=== PATIENT | female | born 1990 | race Caucasian/White ===

== ENCOUNTER 2020-01-10 13:05 | Observation (INO) | payer BC, OTHER ==
[~2020-01-10] VITALS: Ht 162.6 cm; Wt 59.0 kg
[2020-01-10] MEDS ORDERED: LORazepam Inj 2mg/ml 1ml IM ONE (13:45)
[2020-01-10 14:26] VITALS: BP 133/87
--- NOTE | 2020-01-10 14:28 | NUR ---
ED Nurse Note:pt. came from home with c/o anxiety and possible overdose on psych meds, given ativan
--- NOTE | 2020-01-10 14:30 | NUR ---
ED Nurse Note:pt. reported exidently taking double dose of wellbutrin today
--- NOTE | 2020-01-10 15:10 | Emergency Room Report ---
History of Present Illness General Chief Complaint: General Complaint Present Illness HPI 29-year-old female presents to the emergency department complaining of increased anxiety, tearfulness and hyperventilating status post accidentally taking a double dosage of her Wellbutrin today. Patient reports that she takes 450 mg daily for depression and ADHD. Patient reports she takes a 300 as well as 150 mg Wellbutrin XL. Patient reports that she believes she may have taken her dose when she woke up early this morning. Patient went back to bed and woke up se veral hours later and went to work. Patient reports she was not sure if she took her medication or not so she went ahead and took another dose. Patient reports while at work at approximately 10 AM she began having severe anxiety and hyperventilating and crying. Patient believes she may have accidentally overdosed on her Wellbutrin. She denies taking any other medications. She denies . She denies cardiac, liver or renal disease. Patient denies previous psychiatric hospitalizations or PSAs. She denies hallucinations. She denies history of seizures. She reports that she feels as though her heart is racing. She denies chest pain. Allergies: Coded Allergies: No Known Allergies (Unverified , 01/10/20) COVID-19 Screening Contact w/high risk pt: No Experienced COVID-19 symptoms?: No COVID-19 Testing performed PILOT INSTRUCTOR: No Patient History Past Medical History: see triage record Past Surgical History: none Pertinent Family History: none Now: No Reviewed Nursing Documentation: PMH: Agreed; PSxH: Agreed Review of Systems All Other Systems: negative except mentioned in HPI Physical Exam Vital Signs Date Time Temp Pulse Resp B/P (MAP) Pulse Ox O2 Delivery O2 Flow Rate FiO2 01/10/20 13:29 97.9 87 20 133/87 (102) 97 Room Air Sp02 EP Interpretation: reviewed, normal General Appearance: no apparent distress, alert, GCS 15, non-toxic Head: normocephalic, atraumatic Eyes: bilateral eye normal inspection, bilateral eye PERRL ENT: hearing grossly normal, normal voice Neck: full range of motion Respiratory: chest non-tender, lungs clear, normal breath sounds, no accessory muscle use, no wheezing, speaking full sentences Cardiovascular #1: regular rate, rhythm, no edema Gastrointestinal: normal bowel sounds, non tender, soft Musculoskeletal: normal range of motion, gait/station normal, non-tender Neurologic: alert, motor strength/tone normal, oriented x3, sensory intact, responsive, speech normal Psychiatric: judgement/insight normal, anxious - Pt. very anxious. Skin: no rash, normal color Medical Decision Making PA Attestation Dr. Santos is my supervising Physician whom patient management has been discussed with. Diagnostic Impression: Primary Impression: Accidental overdose Qualified Codes: T50.901A - Poisoning by unspecified drugs, medicaments and biological substances, accidental (unintentional), initial encounter ER Course 29-year-old female presents to the emergency department complaining of increased anxiety, tearfulness and hyperventilating status post accidentally taking a double dosage of her Wellbutrin today. Patient reports that she takes 450 mg daily for depression and ADHD. Patient reports she takes a 300 as well as 150 mg Wellbutrin XL. Patient reports that she believes she may have taken her dose when she woke up early this morning. Patient went back to bed and woke up several hours later and went to work. Patient reports she was not sure if she took her medication or not so she went ahead and took another dose. Patient rep orts while at work at approximately 10 AM she began having severe anxiety and hyperventilating and crying. Patient believes she may have accidentally overdosed on her Wellbutrin. She denies taking any other medications. She denies . She denies cardiac, liver or renal disease. Patient denies previous psychiatric hospitalizations or PSAs. She denies hallucinations. She denies history of seizures. She reports that she feels as though her heart is racing. She denies chest pain. Pt is has a very anxious and restless affect., Patient began crying and worrying after being triaged as she was told that her vital signs were normal. This really worried the patient as she is feeling abnormal and is worried that we do not believe her. Ddx considered but are not limited to OD, SI/HI, psychosis, UTI, intoxication Vital signs: are WNL, pt. is afebrile. H&PE are most consistent with accidental overdose on Wellbutrin that was unintentional. Patient denies SI ORDERS: --EKG [address] changes QT/QTc interval. -CBC, CMP: WNL -UA: negative for infection see results attached. -UDS: Negative -Urine Hcg: Negative -Salicylates and Acetaminophen - no acute intoxication. ED INTERVENTIONS: - 1mg Ativan IM --- Patient has moderate improvement of her symptoms. Upon reevaluation patient explained that she took a total of 900 mg when originally she thought it was 700. Poison control was contacted and recommended 24-hour observation. DISPOSITION: at this time pt. will be admitted to Dr. Goss for 24-hour observation for accidental overdose of Wellbutrin. Dr. Goss agreed to admit the pt. and to continue pt. care management. Labs Test 01/10/20 16:46 01/10/20 18:15 White Blood Count 6.5 K/UL (4.8-10.8) Red Blood Count 4.54 M/UL (4.20-5.40) Hemoglobin 14.7 G/DL (12.0-16.0) Hematocrit 42.7 % (37.0-47.0) Mean Corpuscular Volume 94 FL (80-99) Mean Corpuscular Hemoglobin 32.4 PG (27.0-31.0) Mean Corpuscular Hemoglobin Concent 34.5 G/DL (32.0-36.0) Red Cell Distribution Width 11.6 % (11.6-14.8) Platelet Count 195 K/UL (150-450) Mean Platelet Volume 7.2 FL (6.5-10.1) Neutrophils (%) (Auto) 69.0 % (45.0-75.0) Lymphocytes (%) (Auto) 24.1 % (20.0-45.0) Monocytes (%) (Auto) 5.8 % (1.0-10.0) Eosinophils (%) (Auto) 0.3 % (0.0-3.0) Basophils (%) (Auto) 0.8 % (0.0-2.0) Sodium Level 139 MMOL/L (136-145) Potassium Level 3.4 MMOL/L (3.5-5.1) Chloride Level 103 MMOL/L (98-107) Carbon Dioxide Level 26 MMOL/L (21-32) Anion Gap 11 mmol/L (5-15) Blood Urea Nitrogen 9 mg/dL (7-18) Creatinine 0.9 MG/DL (0.55-1.30) Estimat Glomerular Filtration Rate > 60 mL/min (>60) Glucose Level 78 MG/DL (74-106) Calcium Level 9.3 MG/DL (8.5-10.1) Total Bilirubin 0.7 MG/DL (0.2-1.0) Aspartate Amino Transf (AST/SGOT) 18 U/L (15-37) Alanine Aminotransferase (ALT/SGPT) 39 U/L (12-78) Alkaline Phosphatase 57 U/L (46-116) Total Protein 8.0 G/DL (6.4-8.2) Albumin 4.6 G/DL (3.4-5.0) Globulin 3.4 g/dL Albumin/Globulin Ratio 1.4 (1.0-2.7) Salicylates Level 1.1 ug/mL (2.8-20) Acetaminophen Level < 2 MCG/ML (10-30) Serum Alcohol < 3 mg/dL Urine HCG, Qualitative Negative (NEGATIVE) Urine Opiates Screen Negative (NEGATIVE) Urine Barbiturates Screen Negative (NEGATIVE) Phencyclidine (PCP) Screen Negative (NEGATIVE) Urine Amphetamines Screen Negative (NEGATIVE) Urine Benzodiazepines Screen Negative (NEGATIVE) Urine Cocaine Screen Negative (NEGATIVE) Urine Marijuana (THC) Screen Negative (NEGATIVE) EKG Diagnostic Results Troponin ordered: No EKG Time: 13:50 Rate: normal - 88 bpm Rhythm: NSR ST Segments: no acute changes Other Impression No evidence of prolonged QT ASA given to the pt in ED: No PA Scribe Text This Interpretation was scribed by MASSIMO Roach. Last Vital Signs Date Time Temp Pulse Resp B/P (MAP) Pulse Ox O2 Delivery O2 Flow Rate FiO2 01/10/20 14:48 87 20 133/87 97 01/10/20 14:26 Room Air 01/10/20 14:26 97.9 Status: improved Disposition: ADMITTED INPATIENT Condition: Malaiak Bowers Jan 10, 2020 15:10
--- NOTE | 2020-01-10 16:21 | NUR ---
HAND-OFF: Report given to Kia. pt. was moved to bed 5 and placed on school lunch monitor
[2020-01-10 16:30] VITALS: BP 119/83
[2020-01-10 17:16] LABS: BASOPHILS % (AUTO) 0.8 % (0.0-2.0); EOSINOPHILS % (AUTO) 0.3 % (0.0-3.0); HEMATOCRIT 42.7 % (37.0-47.0); HEMOGLOBIN 14.7 G/DL (12.0-16.0); LYMPHOCYTES % (AUTO) 24.1 % (20.0-45.0); MEAN CORPUSCULAR VOLUME 94 FL (80-99); MONOCYTES % (AUTO) 5.8 % (1.0-10.0); PLATELET COUNT 195 K/UL (150-450); RED BLOOD COUNT 4.54 M/UL (4.20-5.40); RED CELL DISTRIBUTION WIDTH 11.6 % (11.6-14.8); WHITE BLOOD COUNT 6.5 K/UL (4.8-10.8)
[2020-01-10 17:28] LABS: ANION GAP 11 mmol/L (5-15); BLOOD UREA NITROGEN 9 mg/dL (7-18); CALCIUM 9.3 MG/DL (8.5-10.1); CARBON DIOXIDE 26 MMOL/L (21-32); CHLORIDE 103 MMOL/L (98-107); CREATININE 0.9 MG/DL (0.55-1.30); POTASSIUM 3.4 MMOL/L (3.5-5.1); SODIUM 139 MMOL/L (136-145)
[2020-01-10 17:34] LABS: ALANINE AMINOTRANSFERASE 39 U/L (12-78); ALBUMIN 4.6 G/DL (3.4-5.0); ALBUMIN/GLOBULIN RATIO 1.4 (1.0-2.7); ALKALINE PHOSPHATASE 57 U/L (46-116); ASPARTATE AMINO TRANSFERASE 18 U/L (15-37); BILIRUBIN,TOTAL 0.7 MG/DL (0.2-1.0)
[2020-01-10 18:30] VITALS: BP 121/74
[2020-01-10] MEDS ORDERED: Miralax 17gm pkt ORAL PRN (19:00)
[2020-01-10] MEDS ORDERED: Zolpidem 5mg tab ORAL PRN (19:00)
--- NOTE | 2020-01-10 19:11 | NUR ---
HAND-OFF: Report given to Zoraida SPEAR.
[2020-01-10 20:12] VITALS: BP 110/61
[2020-01-10] MEDS ORDERED: BUPROPION XL300 MG ORAL (20:34)
--- NOTE | 2020-01-10 20:40 | NUR ---
TRANSFER TO FLOOR: Patient transferred to as ordered, per Dr Goss. Report given to RAINER Domínguez. Belongings and medications given to . Family and or S/O informed of transfer.
[2020-01-10] MEDS: D5 1/2NS 1,000 ML IV SCH (22:03)
[2020-01-11] VITALS: BP 124/63
--- NOTE | 2020-01-11 02:45 | NUR ---
NURSE NOTES: Patient received from Zoraida SPEAR. Brought in by herber from ED was able to ambulate to the bed. Vital signs stable upon arrival, panel monitor and gown placed on patient. No c/o pain and no s/s of distress. Oriented to room and call light. Skin intact on admission. Call light amd bedside table within reach. Will continue plan of care.
[2020-01-11 04:00] VITALS: BP 109/52
--- NOTE | 2020-01-11 07:03 | NUR ---
NURSES NOTES: Report received from RAINER Domínguez. Pt is A/O x 4 and verbally responsive. No SOB or acute distress. Pt is under observation for accidental drug overdose. Pt is ambulatory and continent of both bowel and bladder. VS stable and no ASE noted. Will continue plan of care.
[2020-01-11 07:18] LABS: BASOPHILS % (AUTO) 0.9 % (0.0-2.0); EOSINOPHILS % (AUTO) 1.5 % (0.0-3.0); HEMATOCRIT 39.4 % (37.0-47.0); HEMOGLOBIN 13.4 G/DL (12.0-16.0); LYMPHOCYTES % (AUTO) 35.5 % (20.0-45.0); MEAN CORPUSCULAR VOLUME 97 FL (80-99); MONOCYTES % (AUTO) 9.2 % (1.0-10.0); NEUTROPHILS % (AUTO) 52.9 % (45.0-75.0); PLATELET COUNT 164 K/UL (150-450); RED BLOOD COUNT 4.07 M/UL (4.20-5.40); RED CELL DISTRIBUTION WIDTH 11.9 % (11.6-14.8); WHITE BLOOD COUNT 5.2 K/UL (4.8-10.8)
--- NOTE | 2020-01-11 07:29 | NUR ---
NURSE HAND-OFF REPORT: Important Events on Shift:[Admission] Patient Status: [Stable] Diet: [Regular] Pending Orders: [] Pending Results/Labs:[] Pending MD notification:[] Latest Vital Signs: Temperature 98.2 , Pulse 72 , B/P 109 /52 , Respiratory Rate 18 , O2 SAT 99 , Room Air, O2 Flow Rate . Vital Sign Comment: [] EKG Rhythm: Sinus Rhythm Rhythm change?: N MD Notified?: - MD Response: Latest Marquez Fall Score: 20 Fall Risk: Low Risk Safety Measures: Call light Within Reach, Bed Alarm Zone 1, Side Rails Side Rails x2, Bed position Low and Locked. Fall Precautions: Yellow Socks Yellow Gown Door Sign Patient Fall Education Report given to [Irish SPEAR].
[2020-01-11 07:44] LABS: ALANINE AMINOTRANSFERASE 23 U/L (12-78); ALBUMIN 3.6 G/DL (3.4-5.0); ALBUMIN/GLOBULIN RATIO 1.2 (1.0-2.7); ALKALINE PHOSPHATASE 46 U/L (46-116); ANION GAP 4 mmol/L (5-15); ASPARTATE AMINO TRANSFERASE 17 U/L (15-37); BILIRUBIN,TOTAL 0.6 MG/DL (0.2-1.0); BLOOD UREA NITROGEN 10 mg/dL (7-18); CALCIUM 8.7 MG/DL (8.5-10.1); CARBON DIOXIDE 30 MMOL/L (21-32); CHLORIDE 105 MMOL/L (98-107); CHOLESTEROL 186 MG/DL (< 200); CREATININE 0.9 MG/DL (0.55-1.30); HDL CHOLESTEROL 76 MG/DL (40-60); POTASSIUM 4.2 MMOL/L (3.5-5.1); SODIUM 139 MMOL/L (136-145); TRIGLYCERIDES 34 MG/DL (30-150)
[2020-01-11 07:52] LABS: PHOSPHORUS 3.9 MG/DL (2.5-4.9)
[2020-01-11 08:00] VITALS: BP 100/61
[2020-01-11] MEDS: D5 1/2NS 1,000 ML IV SCH (10:53)
[2020-01-11 12:00] VITALS: BP 110/64
--- NOTE | 2020-01-11 12:05 | Consultation ---
History of Present Illness General Date patient seen: Jan 11, 2020 Chief Complaint: General Complaint Present Illness HPI 29-year-old female with hx of depression and anxiety presented to the emergency department complaining of increased anxiety, tearfulness and hyperventilating status post accidentally taking a double dosage of her Wellbutrin today. Patient believes she may have accidentally overdosed on her Wellbutrin. ER physician contacted the poison control who recommended 24 hours of observing. Pt is asymptomatic now and anxious to be discharged. Allergies: Coded Allergies: No Known Allergies (Unverified , 01/10/20) Medication History Scheduled Bupropion Hcl* (Wellbutrin*), 450 MG ORAL DAILY, (Reported) Patient History Healthcare decision maker Resuscitation status Advanced Directive on File Past Medical/Surgical History Past Medical/Surgical History: (1) Depression (2) Anxiety Review of Systems All Other Systems: negative except mentioned in HPI Physical Exam General Appearance: WD/WN, no apparent distress Lines, tubes and drains: peripheral HEENT: normocephalic, atraumatic Neck: non-tender, supple Respiratory/Chest: chest wall non-tender, normal breath sounds Cardiovascular/Chest: normal peripheral pulses, normal rate Abdomen: normal bowel sounds, non tender Last 24 Hour Vital Signs Date Time Temp Pulse Resp B/P (MAP) Pulse Ox O2 Delivery O2 Flow Rate FiO2 01/11/20 08:09 Room Air 01/11/20 08:00 100.0 70 18 100/61 (74) 99 01/11/20 08:00 80 01/11/20 04:00 74 01/11/20 04:00 98.2 72 18 109/52 (71) 99 01/11/20 00:00 98.0 74 18 124/63 (83) 95 01/11/20 00:00 68 01/10/20 21:00 85 01/10/20 20:40 98.0 82 20 121/68 99 Room Air 01/10/20 20:12 97.5 85 19 110/61 100 Room Air 01/10/20 18:30 98.3 69 15 121/74 100 Room Air 01/10/20 16:30 98.3 83 16 119/83 99 Room Air 01/10/20 14:48 87 20 133/87 97 01/10/20 14:26 87 20 Room Air 01/10/20 14:26 97.9 87 20 133/87 97 Room Air 01/10/20 14:07 87 20 133/87 97 01/10/20 13:29 97.9 87 20 133/87 (102) 97 Room Air Laboratory Tests Test 01/10/20 16:46 01/10/20 18:15 01/11/20 05:25 White Blood Count 6.5 K/UL (4.8-10.8) 5.2 K/UL (4.8-10.8) Red Blood Count 4.54 M/UL (4.20-5.40) 4.07 M/UL (4.20-5.40) L Hemoglobin 14.7 G/DL (12.0-16.0) 13.4 G/DL (12.0-16.0) Hematocrit 42.7 % (37.0-47.0) 39.4 % (37.0-47.0) Mean Corpuscular Volume 94 FL (80-99) 97 FL (80-99) Mean Corpuscular Hemoglobin 32.4 PG (27.0-31.0) H 32.8 PG (27.0-31.0) H Mean Corpuscular Hemoglobin Concent 34.5 G/DL (32.0-36.0) 33.9 G/DL (32.0-36.0) Red Cell Distribution Width 11.6 % (11.6-14.8) 11.9 % (11.6-14.8) Platelet Count 195 K/UL (150-450) 164 K/UL (150-450) Mean Platelet Volume 7.2 FL (6.5-10.1) 7.3 FL (6.5-10.1) Neutrophils (%) (Auto) 69.0 % (45.0-75.0) 52.9 % (45.0-75.0) Lymphocytes (%) (Auto) 24.1 % (20.0-45.0) 35.5 % (20.0-45.0) Monocytes (%) (Auto) 5.8 % (1.0-10.0) 9.2 % (1.0-10.0) Eosinophils (%) (Auto) 0.3 % (0.0-3.0) 1.5 % (0.0-3.0) Basophils (%) (Auto) 0.8 % (0.0-2.0) 0.9 % (0.0-2.0) Sodium Level 139 MMOL/L (136-145) 139 MMOL/L (136-145) Potassium Level 3.4 MMOL/L (3.5-5.1) L 4.2 MMOL/L (3.5-5.1) Chloride Level 103 MMOL/L (98-107) 105 MMOL/L (98-107) Carbon Dioxide Level 26 MMOL/L (21-32) 30 MMOL/L (21-32) Anion Gap 11 mmol/L (5-15) 4 mmol/L (5-15) L Blood Urea Nitrogen 9 mg/dL (7-18) 10 mg/dL (7-18) Creatinine 0.9 MG/DL (0.55-1.30) 0.9 MG/DL (0.55-1.30) Estimat Glomerular Filtration Rate > 60 mL/min (>60) > 60 mL/min (>60) Glucose Level 78 MG/DL (74-106) 90 MG/DL (74-106) Calcium Level 9.3 MG/DL (8.5-10.1) 8.7 MG/DL (8.5-10.1) Total Bilirubin 0.7 MG/DL (0.2-1.0) 0.6 MG/DL (0.2-1.0) Aspartate Amino Transf (AST/SGOT) 18 U/L (15-37) 17 U/L (15-37) Alanine Aminotransferase (ALT/SGPT) 39 U/L (12-78) 23 U/L (12-78) Alkaline Phosphatase 57 U/L (46-116) 46 U/L (46-116) Total Protein 8.0 G/DL (6.4-8.2) 6.5 G/DL (6.4-8.2) Albumin 4.6 G/DL (3.4-5.0) 3.6 G/DL (3.4-5.0) Globulin 3.4 g/dL 2.9 g/dL Albumin/Globulin Ratio 1.4 (1.0-2.7) 1.2 (1.0-2.7) Salicylates Level 1.1 ug/mL (2.8-20) L Acetaminophen Level < 2 MCG/ML (10-30) L Serum Alcohol < 3 mg/dL Urine HCG, Qualitative Negative (NEGATIVE) Urine Opiates Screen Negative (NEGATIVE) Urine Barbiturates Screen Negative (NEGATIVE) Phencyclidine (PCP) Screen Negative (NEGATIVE) Urine Amphetamines Screen Negative (NEGATIVE) Urine Benzodiazepines Screen Negative (NEGATIVE) Urine Cocaine Screen Negative (NEGATIVE) Urine Marijuana (THC) Screen Negative (NEGATIVE) Phosphorus Level 3.9 MG/DL (2.5-4.9) Magnesium Level 1.9 MG/DL (1.8-2.4) Triglycerides Level 34 MG/DL (30-150) Cholesterol Level 186 MG/DL (< 200) LDL Cholesterol 90 mg/dL (<100) HDL Cholesterol 76 MG/DL (40-60) H Cholesterol/HDL Ratio 2.4 (3.3-4.4) L Thyroid Stimulating Hormone (TSH) 2.547 uiU/mL (0.358-3.740) Microbiology Date/Time Source Procedure Growth Status 01/10/20 17:00 Nasopharynx SARS-CoV-2 RdRp Gene Assay - Final Complete Height (Feet): 5 Height (Inches): 4.00 Weight (Pounds): 130 Medications Current Medications Medications (Trade) Dose Ordered Sig/Toby Route PRN Reason Start Time Stop Time Status Last Admin Dose Admin Acetaminophen (Tylenol) 650 mg Q4H PRN ORAL Temp >100.5 01/10/20 19:00 02/09/20 18:59 Dextrose (Dextrose 50%) 25 ml Q30MIN PRN IV Hypoglycemia 01/10/20 19:00 04/09/20 18:59 Dextrose (Dextrose 50%) 50 ml Q30MIN PRN IV Hypoglycemia 01/10/20 19:00 04/09/20 18:59 Dextrose/Sodium Chloride 1,000 ml @ 75 mls/hr [id number] IV 01/10/20 21:45 02/09/20 21:44 01/11/20 10:53 Ondansetron HCl (Zofran) 4 mg Q6H PRN IVP Nausea & Vomiting 01/10/20 19:00 02/09/20 18:59 Polyethylene Glycol (Miralax) 17 gm HSPRN PRN ORAL Constipation 01/10/20 19:00 02/09/20 18:59 Zolpidem Tartrate (Ambien) 5 mg HSPRN PRN ORAL Insomnia 01/10/20 19:00 01/17/20 18:59 Assessment/Plan Problem List: (1) Accidental overdose ICD Codes: T50.901A - Poisoning by unspecified drugs, medicaments and biological substances, accidental (unintentional), initial encounter SNOMED: 32303447 Qualifiers: Qualified Codes: T50.901A - Poisoning by unspecified drugs, medicaments and biological substances, accidental (unintentional), initial encounter (2) Anxiety ICD Codes: F41.9 - Anxiety disorder, unspecified SNOMED: 80479310 (3) Depression ICD Codes: F32.9 - Major depressive disorder, single episode, unspecified SNOMED: 93000936 Assessment/Plan: no arrhythmias on telemetry no signs of anxiety. Sanjay Hall MD Jan 11, 2020 12:05
--- NOTE | 2020-01-11 12:16 | NUR ---
CASE MANAGEMENT:REVIEW 29YR OLD FEMALE WALKED INTO ER CC; OVERDOSED HERSELF WITH WELLBUTRIN SI: ACCIDENTAL OVERDOSE 97.9 87 20 133/87 97% ON RA K-3.4 IS: JOSR BURGESS SWAB : TO TELEMETRY UNIT PLAN: CONTINUOUS CARDIAC MONITORING 01/11/20 DISCHARGE HOME
--- NOTE | 2020-01-11 13:03 | History & Physical ---
History and Physical History & Physicial -[id number] Morgan Goss MD Jan 11, 2020 13:03
--- NOTE | 2020-01-11 13:05 | NUR ---
NURSES NOTES: Pt is A/O x 4 and verbally responsive. Pt's IV was removed along with ID band. Pt discharge paperwork was gone over regarding medications and a follow up appointment with her primary PCP. Inventory gone over with the patient and signed. Pt asked regarding her bill and let her know that she would have to contact the business office regarding the bill. All paperwork signed by the pt. Pt was walked downstairs to a private car where her boyfriend drove her home. In stable condition.
--- NOTE | 2020-01-11 15:35 | NUR ---
INSURANCE CLINICAL/REVIEW/DC INSTRUCTIONS FAXED TO [facility] P:[phone] F:[phone]
--- NOTE | 2020-01-11 23:30 | History and Physical Report ---
DATE OF ADMISSION: 01/10/2020 CHIEF COMPLAINT: Generalized weakness. HISTORY OF PRESENT ILLNESS: This is a 29-year-old female with past medical history of depression and anxiety, who presented to the hospital after having complained about increased anxiety, tearful, and hyperventilation, status post of accidentally doubled the dose on the Wellbutrin today and the patient believed that she was accidentally overdosed on the Wellbutrin. Shortly after initial evaluation in the emergency department, the patient was admitted to the hospital with excessive anxiety and hyperventilation, most likely secondary to Wellbutrin overdose. PAST MEDICAL HISTORY/PAST SURGICAL HISTORY: As above. History of anxiety and depression. MEDICATIONS AT HOME: Significant for Wellbutrin 450 p.o. daily. ALLERGIES: No known drug allergies. SOCIAL HISTORY: Denies any smoking, alcohol, or drugs. FAMILY HISTORY: Noncontributory. REVIEW OF SYSTEMS: Mostly as above. Denies any dysuria, frequency, or hematuria. Denies any hemoptysis or hematochezia. Denies any suicidal or homicidal ideation. Denies any loss of consciousness. PHYSICAL EXAMINATION: VITAL SIGNS: On admission, temperature 97.9, pulse of 87, respiratory rate 20, blood pressure 133/87. GENERAL: The patient is awake, responsive, in no acute distress, and mildly anxious. HEAD AND NECK: Pupils are equal and reactive to light. Extraocular movements intact. NECK: Supple. No JVD. LUNGS: Good air entry. No wheezes or rales. HEART: S1, S2. Regular rhythm. No murmur or gallops. ABDOMEN: Soft, nondistended, nontender. Positive bowel sounds. EXTREMITIES: No cyanosis, clubbing, or edema. NEUROLOGIC: Cranial nerves II through XII grossly intact. Motor is 5/5 in all extremities. Gait is intact. RECTAL: Refused and deferred. GENITOURINARY: Refused and deferred. PSYCHIATRIC: Mood and affect is intact. LABORATORY DATA: Laboratory on admission, WBC of 6.5, hemoglobin 14, hematocrit 42, and platelet is 195,000. Sodium 139, potassium 3.4, chloride 103, bicarb 26, BUN 9, creatinine 0.9. Liver function is essentially unremarkable. Urine drug screen is negative. Salicylate level is 1.1. Acetaminophen level is less than 2. Alcohol level is negative. Urine beta-hCG is negative. COVID-19 test is negative. ASSESSMENT: 1. Wellbutrin overdose. 2. Anxiety and depression. PLAN: Admit the patient to monitored unit. Monitor laboratory closely as well as IV hydration. Follow up with Dr. Hall from Pulmonary/Critical Care. If the patient's status improves, consider discharge home to be followed up as an outpatient with Dr. Petersen, her primary doctor. Morgan Goss M.D. DR: Farooq JOB#: [id number] CC:
--- NOTE | 2020-01-13 20:45 | Cardiology Report ---
APPROVED REPORT EKG Measurement Heart [id number] [place] [id number] <Conclusion> Normal sinus rhythm Normal ECG
== END 2020-01-11 13:44 | disposition home or self-care (01) ==
LOC: EMR 15:57 → 2E 17:10 → INTOOBSV 17:10 → EDBEDREQ 20:03
DX: T43.291A Poisoning by other antidepressants, accidental (unintentional), initial encounter (principal); X58.XXXA Exposure to other specified factors, initial encounter; Y92.9 Unspecified place or not applicable; F32.9 Major depressive disorder, single episode, unspecified; F41.9 Anxiety disorder, unspecified; Z79.899 Other long term (current) drug therapy
CPT/HCPCS: 36415; 80053; 80061; 80307; 81025; 83735; 84100; 84443; 85025; 93005; 96360; 96361; 96372; 96374; 99284; G0378; G0480; U0002; J8499